=== PATIENT | female | born 1940 | race Caucasian/White ===

== ENCOUNTER 2016-12-26 06:45 | Day surgery (SDC) | payer MEDICARE, OTHER ==
[~2016-12-26] VITALS: Ht 170.2 cm; Wt 89.3 kg
[~2016-12-26 06:45] MED LIST: ACAI500C PO; ACET1TAB50 PO; ALLO100T30 PO; ASCO250T2 PO; ASPI-496 PO; ATEN-104 PO; ATOR40TA PO; BISM262T12 PO; CALC-599 PO; CEPH-367 PO; CHOL10003 PO; DABI150C PO; DOCU240C53 PO; ESOM40CA PO; GLUC500T8 PO; LEVO75TA PO; LIOT5TAB3 PO; MULT-257 PO; MV,C400T2 PO; NITR50CA11 PO; ONDA4TAB10 PO; PANT40TA5 PO; POTA10TA5 PO; POTA15TA PO; PSYL0.5215 PO; TRAM50TA2 PO
[2016-12-26] MEDS ORDERED: MIDAZOLAM 1 MG/ML, 2ML ONE (07:35)
[2016-12-26] MEDS ORDERED: FENTANYL PF 250 MCG/5ML ONE (07:36)
[2016-12-26] MEDS ORDERED: LACTATED RINGERS 1,000 ML IV SCH (07:45)
[2016-12-26 07:47] VITALS: BP 157/85
[2016-12-26] MEDS ORDERED: ONDANSETRON 2MG/ML, 2ML IVPush PRN (08:00)
[2016-12-26] MEDS ORDERED: LABETALOL 5MG/ML, 20ML IV PRN (08:00)
[2016-12-26] MEDS ORDERED: hydrALAzine 20 MG/ML, 1ML IV PRN (08:00)
[2016-12-26] MEDS ORDERED: METOCLOPRAMIDE 5 MG/ML, 2ML IV PRN (08:00)
[2016-12-26] MEDS ORDERED: FENTANYL PF 100 MCG/2ML IV PRN (08:00)
[2016-12-26] MEDS ORDERED: MEPERIDINE/PF 25MG/0.5ML IVPush PRN (08:00)
[2016-12-26] MEDS ORDERED: OXYcodone 5 MG/5 ML ORAL.SOL UDC PO PRN (08:00)
[2016-12-26] MEDS ORDERED: PROMETHAZINE 25 MG/ML, 1ML IV PRN (08:00)
[2016-12-26] MEDS ORDERED: ACETAMINOPHEN 325 MG TABLET PO PRN (08:00)
[2016-12-26] MEDS ORDERED: HYDROmorphone 1 MG/ML, 1ML IV PRN (08:00)
[2016-12-26] MEDS ORDERED: PROPOFOL 10 MG/ML, 20ML ONE (16:36)
[2016-12-26] MEDS ORDERED: PROPOFOL 10 MG/ML, 50ML ONE (16:36)
== END 2016-12-26 11:17 ==
LOC: OUT 06:45
PROVIDERS: ATTEND Urology
DX: R31.9 Hematuria, unspecified (principal); I10 Essential (primary) hypertension; I48.91 Unspecified atrial fibrillation; E03.9 Hypothyroidism, unspecified; Z88.0 Allergy status to penicillin; Z88.8 Allergy status to other drugs, medicaments and biological substances; E78.00 Pure hypercholesterolemia, unspecified; K21.9 Gastro-esophageal reflux disease without esophagitis; Z87.440 Personal history of urinary (tract) infections; Z87.39 Personal history of other diseases of the musculoskeletal system and connective tissue; Z85.42 Personal history of malignant neoplasm of other parts of uterus
CPT/HCPCS: 52000; J2250; J2704; J7120; J3010